=== PATIENT | male | born 1955 | race Caucasian/White ===

== ENCOUNTER 2020-05-02 12:01 | Emergency (ER) | payer MEDICARE, MEDICAID ==
[~2020-05-02] VITALS: Ht 180.3 cm; Wt 86.4 kg
[2020-05-02] MEDS ORDERED: ketorolac trometh. 30mg/ml inj. IM ONE (12:15)
[2020-05-02] MEDS ORDERED: HYDROcodone/acetaminophen 10/325mg tab PO ONE (12:15)
[2020-05-02] MEDS ORDERED: HYDR-4298 PO (13:11)
[2020-05-02] MEDS ORDERED: HYDR-3972 PO (13:20)
[2020-05-02 13:21] VITALS: BP 151/92
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
== END 2020-05-02 14:21 | disposition home or self-care (01) ==
LOC: ER 12:02
DX: M25.561 Pain in right knee (principal); M06.9 Rheumatoid arthritis, unspecified
CPT/HCPCS: 29505; 73564; 96372; 99283; J1885